=== PATIENT | male | born 1970 | race African-American/Black ===

== ENCOUNTER 2018-12-24 12:04 | Outpatient (CLI) | payer OTHER ==
[2018-12-24 12:15] LABS: #Basophils 0.1 thou/uL (0.0-0.2); #Eosinphils 0.1 thou/uL (0.0-0.7); #Lymphocytes 2.1 thou/uL (1.20-3.40); #Monocytes 0.5 thou/uL (0.11-0.59); #Neutrophils 4.4 thou/uL (1.40-6.50); %Basophils 1.4 % (0.0-1.0); %Lymphocytes 28.9 % (21.0-51.0); %Monocytes 7.2 % (0.0-10.0); %Neutrophils 61.5 % (42.0-75.0); Hemoglobin 16.1 g/dL (14.0-18.0); Mean Corpuscular HGB CONC 33.2 g/dL (32.0-36.0); Mean Corpuscular Hemoglobin 28.2 pg (27.0-31.0); Mean Corpuscular Volume 84.9 fL (78.0-98.0); Mean Platelet Volume 9.8 fL (7.4-10.4); Platelet Count 179 thou/uL (130-400); RBC Distribution Width 12.1 % (11.5-14.5); Red Blood Cell (RBC) Count 5.71 mill/uL (4.70-6.10); White Blood Cell (WBC) Count 7.2 thou/uL (4.8-10.8)
[2018-12-24 12:29] LABS: ALT (SGPT) 14 U/L (8-55); AST (SGOT) 12 U/L (5-34); Albumin 4.5 g/dL (3.5-5.0); Alkaline Phosphatase 82 U/L (40-150); Anion Gap 11 mmol/L (10-20); BUN (Urea Nitrogen) 8 mg/dL (8.9-20.6); Calc. Creatinine Clearance 0 mL/min (70-130); Carbon Dioxide 29 mmol/L (22-29); Cardiac Risk 3.9 (Less than 4.5); Chloride 104 mmol/L (98-107); Cholesterol 176 mg/dl (< 200 Desired); Estimated GFR-MDRD Greater than 90; Globulin 3.7 g/dL (2.4-3.5); Glucose 118 mg/dL (70-105); HDL Cholesterol 45 mg/dL (>60 Neg Risk); LDL Cholesterol, Calculated 114 mg/dL; Protein, Total 8.2 g/dL (6.0-8.3); Sodium 140 mmol/L (136-145); Triglycerides 85 mg/dL (Less than 150)
[2018-12-24 12:30] LABS: Bilirubin Negative (Negative); Blood, Urine Negative (Negative); Clarity Clear (Clear); Glucose, Urine (Dipstick) Negative (Negative); Leukocyte Negative (Negative); Nitrite Negative (Negative); Protein, Urine (Dipstick) Negative (Neg-Trace); Specific Gravity, Urine 1.015 (1.005-1.030)
[2018-12-24 12:34] LABS: Bacteria/HPF None Seen HPF (None Seen); RBC/HPF 0-3 HPF (0-3); Squamous Epithelial 0-3 HPF (0-3); WBC/HPF 0-3 HPF (0-3)
--- NOTE | 2018-12-24 12:39 | RAD ---
LEFT FOOT 3 VIEWS: HISTORY: Bilateral foot pain. History of diabetes with diabetic neuropathy. FINDINGS: Some minimal arthritic changes of the 1st metatarsophalangeal joint. Tiny Achilles spur is noted. N o vascular calcifications are seen. Bony mineralization is normal. IMPRESSION: Minimal arthritic changes of the foot. POS: [facility]
--- NOTE | 2018-12-24 12:42 | RAD ---
RIGHT FOOT 3 VIEWS: HISTORY: Bilateral foot pain. History of diabetes. FINDINGS: Some mild arthritic changes of the 1st metatarsophalangeal joint. There are no vascular calcificatio ns or fractures. IMPRESSION: No acute changes. POS: [facility]
[2018-12-24 16:17] LABS: Hemoglobin A1c 6.3 % (4.0-6.0)
== END 2018-12-24 12:05 | disposition home or self-care (01) ==
LOC: SCSRAD 12:04
PROVIDERS: ATTEND Family Medicine
DX: Z00.00 Encounter for general adult medical examination without abnormal findings (principal); Z51.81 Encounter for therapeutic drug level monitoring; E11.42 Type 2 diabetes mellitus with diabetic polyneuropathy; M79.675 Pain in left toe(s); M79.674 Pain in right toe(s); Z79.01 Long term (current) use of anticoagulants; M19.072 Primary osteoarthritis, left ankle and foot
CPT/HCPCS: 36415; 80053; 80061; 81001; 83036; 85025

== ENCOUNTER 2024-08-15 08:55 | Outpatient (CLI) | payer MEDICARE | END 2024-08-15 08:56 | disposition home or self-care (01) | LOC: NM 08:55 | PROVIDERS: ATTEND Psychiatry & Neurology Neurology | DX: G20.A1 Parkinson's disease without dyskinesia, without mention of fluctuations (principal); R93.0 Abnormal findings on diagnostic imaging of skull and head, not elsewhere classified | CPT/HCPCS: 78803; A9584 ×2 ==